=== PATIENT | female | born 1955 | race Caucasian/White ===

== ENCOUNTER → 2017-04-01 | Outpatient (CLI) | payer OTHER ==
[~2017-04-01] MED LIST: ACET-1753; AMLO-147 PO; ASPI-535; CRES10; D 3; FERR27TA; FOLI-49 PO; HYDR-3612; LEVOTHYROXINE; LOSA1TAB9 PO; METH2.5T33 PO; OMEG1CAP43 PO; VITA400T PO; ZOC10 PO; folic acid; vit c
--- NOTE | 2017-04-01 17:32 | RADRPT ---
PROCEDURE: XR Left Hip and pelvis. CLINICAL INDICATION: Left hip pain. Pelvic pain. Postop. TECHNIQUE: Two views. Frontal pelvis and lateral left hip. COMPARISON: 07/23/2011 FINDINGS: There is no fracture or dislocation. Surgical clips are present in the pelvis. There is a left hip total arthroplasty which appears satisfactory. The right hip is grossly normal. There is no lytic or blastic lesion. The upper pelvis is not included on the image. IMPRESSION: 1. Satisfactory postoperative appearance of the left hip. 2. Surgical clips in the pelvis. RPTAT: QQ .Saul Coombs MD, Date Time Electronically viewed and signed by .Saul Coombs MD, on 04/01/2017 17:31 .R/
--- NOTE | 2017-04-03 06:56 | HKNOTE ---
DATE OF SERVICE: 04/01/2017 MAIN COMPLAINT: Pain in the left hip. HISTORY OF MAIN COMPLAINT: The patient is a 61-year-old female, who underwent a left total hip replacement, which was performed by me in 2009. She has been extremely pleased with the results of the surgery. She has never had any problems with it at all. The patient now complains of pain in the left hip, which has been present for about 2 weeks on and off. 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 The pain is localized over the greater trochanter. It radiates down the lateral aspect of the left thigh. She has been taking Aleve for the pain, as well as "rolling muscles." The pain is aggravated by walking, weightbearing and stair climbing. She does not have back pain at present, although she has a history of problems with her lower back. She does not have any numbness or tingling in the legs. On a level surface, she can walk for 30 minutes to an hour without a walking aid. She limps occasionally when she is tired. Patient continues to participate in [employer]. PAST ORTHOPEDIC HISTORY: Left hip replacement 04/2010. Dr. Hightower, [facility]. PRIOR CORTISONE INTAKE: Injection into her knees and left hip. ALCOHOL INTAKE: "Very rare." OTHER JOINT PROBLEMS: None. BLOOD TESTS FOR ARTHRITIS: None. PRIOR INJURIES TO HIPS AND KNEES: None. 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 PAST MEDICAL HISTORY: 1. Heart. 2. Diabetes. PAST SURGICAL HISTORY: Left hip replacement in 2009. Right knee replacement, Dr. Finch 1996. Hysterectomy 1989. section 1986 and 1988. MEDICATIONS: 1. Crestor. 2. Metformin. 3. Jardiance. 4. Trulicity. 5. ramipril. 6. Amlodipine. 7. Aspirin. 8. Vitamin D. 9. Vitamin B6. 10. Vitamin B12. FAMILY HISTORY: Noncontributory. SYSTEMS REVIEW: Entirely negative expect for a fleeting mention of chest pain. HABITS: The patient does not smoke. She rarely drinks an alcoholic beverage. 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 Jarek Carrasquillo, [id number] [facility] [address], [place] [address]. PHYSICAL EXAMINATION: GENERAL: Patient is an overweight 61-year-old female. She comes in with her . GAIT: The patient's gait is mildly antalgic. She walks without a walking aid. VITAL SIGNS: Height 5 foot 1 inch. Weight 204 pounds. Blood pressure 170/75, temperature 98.8. HIPS: Examination of the left hip: A full pain-free range of motion. No tenderness anywhere around the hip. Examination the right hip: A full range of motion with fairly marked tenderness over the right greater trochanter. IMAGING: Plain x-rays of her pelvis and hips obtained today at the [facility] were reviewed. These show a perfect left hip replacement. All components well attached to the bone, well aligned. X-rays of the right hip, as noted on the images, are entirely normal. DIAGNOSES: 1. Trochanteric bursitis of the left hip. 2. Checkup of left total hip replacement. MANAGEMENT: The patient declined a cortisone injection into her hip. She preferred to take [id number] nonsteroid anti- inflammatory medications. if her right hip pain gets worse, she will return for a cortisone injection. Dictated By: Phill Hightower MD /[email or web address] /Document#: [id number]
== END | disposition home or self-care (01) ==
LOC: HKI 14:18
DX: M25.562 Pain in left knee (principal); M70.62 Trochanteric bursitis, left hip; Z96.642 Presence of left artificial hip joint
CPT/HCPCS: 73502; G0463